=== PATIENT | female | born 1950 | race Two or more races ===

== ENCOUNTER 2021-12-04 09:29 | Emergency (ER) | payer BC ==
[~2021-12-04] VITALS: Ht 167.6 cm; Wt 64.0 kg
[2021-12-04] MEDS ORDERED: IBUPROFEN 400MG TABLET PO ONE (10:15)
[2021-12-04] MEDS ORDERED: IBUP-2028 MT (11:59)
[2021-12-04 12:08] VITALS: BP 112/65
== END 2021-12-04 12:10 | disposition home or self-care (01) ==
LOC: ER 09:29
DX: M79.602 Pain in left arm (principal); Z88.0 Allergy status to penicillin
CPT/HCPCS: 73090; 99283

== ENCOUNTER 2024-06-07 14:43 | Emergency (ER) | payer BC, MEDICARE ==
[~2024-06-07] VITALS: Ht 165.1 cm; Wt 63.5 kg
[~2024-06-07 14:43] MED LIST: IBUP-2028 MT
[2024-06-07 14:44] VITALS: O2SAT 100
[2024-06-07 14:50] VITALS: BP 126/72; PULSE 89; RESP 16; TEMP 98.3; O2SAT 99
[2024-06-07 15:24] LABS: BASOPHILS % 0.7 % (0.0-2.0); EOSINOPHILS % 1.4 % (0.0-5.0); HEMATOCRIT. 35.2 % (36.0-48.0); HEMOGLOBIN. 11.6 g/dL (12.0-16.0); MEAN CORPUSCULAR HEMOGLOBIN 30.8 pg (28.0-32.0); MEAN CORPUSCULAR HGB CONC 32.9 g/dL (31.0-37.0); MEAN CORPUSCULAR VOLUME 93.5 fL (81.0-99.0); MEAN PLATELET VOLUME 8.1 fl (7.4-10.4); MONOCYTES % 12.4 % (2.0-8.0); NEUTROPHILS % 68.5 % (40.0-76.0); PLATELET 152 x1000/uL (130-400); RED BLOOD CELL COUNT 3.76 mill/uL (4.2-5.4); RED CELL DISTRIBUTION WIDTH 13.1 % (11.6-14.6); WHITE BLOOD COUNT 3.5 x1000/uL (4.5-11.0)
[2024-06-07 15:28] LABS: CHLORIDE 109 mEq/L (98-107); POTASSIUM 3.7 mEq/L (3.5-5.1); SODIUM 143 mEq/L (136-145)
[2024-06-07 15:29] LABS: CARBON DIOXIDE 29 mEq/L (21-32)
[2024-06-07 15:34] LABS: CREATININE 0.7 mg/dL (0.6-1.0); GLUCOSE 100 mg/dL (70-105)
[2024-06-07 15:35] LABS: UREA NITROGEN BLOOD 12 mg/dL (9-23)
[2024-06-07 15:42] LABS: TROPONIN I HIGH SENSITIVITY < 4 ng/L (3.0-34)
[2024-06-07] MEDS ORDERED: IBUP-2029 MT (18:37)
[2024-06-07] MEDS ORDERED: GUAI-450 MT (18:37)
[2024-06-07] MEDS ORDERED: DEXAMETHASONE 10 MG/ML VIAL PO ONE (18:45)
[2024-06-07] MEDS ORDERED: ACETAMINOPHEN 325MG TABLET PO ONE (18:45)
[2024-06-07] MEDS ORDERED: ACETAMINOPHEN 325MG TABLET PO NR (20:30)
[2024-06-07] MEDS ORDERED: DEXAMETHASONE 10 MG/ML VIAL PO NR (20:30)
== END 2024-06-07 18:57 | disposition home or self-care (01) ==
LOC: ER 15:18
DX: B34.9 Viral infection, unspecified (principal); M81.0 Age-related osteoporosis without current pathological fracture; Z88.0 Allergy status to penicillin
CPT/HCPCS: 36415; 71045; 80048; 84484; 85025; 93005; 99285; J1100